=== PATIENT | male | born 1995 | race Caucasian/White ===

== ENCOUNTER 2018-12-17 18:08 | Emergency (ER) | payer SELFPAY ==
[~2018-12-17] VITALS: Wt 70.0 kg
[2018-12-17] MEDS ORDERED: IBUPROFEN 600 MG TAB PO ONE (19:00)
[2018-12-17] MEDS ORDERED: OXYCODONE/ACETAMINOPHEN (10/325) TAB PO ONE (19:00)
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
[2018-12-17] MEDS ORDERED: OXYC-279 PO ×2 (20:44→20:45)
[2018-12-17] MEDS ORDERED: NALO4SPR NS (20:44)
[2018-12-17] MEDS ORDERED: IBUP-1542 PO (20:44)
[2018-12-17 22:10] VITALS: BP 118/82; PULSE 90; RESP 20
== END 2018-12-17 22:26 | disposition home or self-care (01) ==
LOC: FTE 18:08
DX: S42.021A Displaced fracture of shaft of right clavicle, initial encounter for closed fracture (principal); F17.210 Nicotine dependence, cigarettes, uncomplicated; V29.40XA Motorcycle driver injured in collision with unspecified motor vehicles in traffic accident, initial encounter
CPT/HCPCS: 73000